=== PATIENT | female | born 1970 | race Caucasian/White ===

== ENCOUNTER → 2019-12-12 10:54 | Outpatient (BNVA) | payer OTHER, SELFPAY | PROVIDERS: Family Provider Nurse Practitioner Family; Visit Provider Nurse Practitioner Family | DX: R30.0 Dysuria (principal); Z90.710 Acquired absence of both cervix and uterus; R92.8 Other abnormal and inconclusive findings on diagnostic imaging of breast; N94.9 Unspecified condition associated with female genital organs and menstrual cycle; R10.2 Pelvic and perineal pain; B37.3 Candidiasis of vulva and vagina; Z12.4 Encounter for screening for malignant neoplasm of cervix | CPT/HCPCS: 81000; 84450; 87070; 88175 ==

== ENCOUNTER → 2020-05-07 08:35 | Outpatient (BNVA) | payer OTHER, SELFPAY | PROVIDERS: Family Provider Nurse Practitioner Family; Visit Provider Psychiatry & Neurology Neurology | DX: F33.2 Major depressive disorder, recurrent severe without psychotic features (principal); F41.1 Generalized anxiety disorder | CPT/HCPCS: 90791 ==

== ENCOUNTER → 2020-05-15 10:25 | Outpatient (BNVA) | payer OTHER, SELFPAY | PROVIDERS: Family Provider Nurse Practitioner Family; Visit Provider Anesthesiology Pain Medicine | DX: M25.552 Pain in left hip (principal) | CPT/HCPCS: 73502 ==

== ENCOUNTER → 2021-01-25 09:08 | Outpatient (BNVA) | payer OTHER, SELFPAY | PROVIDERS: Family Provider Nurse Practitioner Family; Visit Provider Nurse Practitioner | DX: Z13.6 Encounter for screening for cardiovascular disorders (principal) | CPT/HCPCS: 80053; 80061; 84443; 85025 ==

== ENCOUNTER → 2021-01-29 13:23 | Outpatient (BNVA) | payer OTHER, SELFPAY | PROVIDERS: Family Provider Nurse Practitioner Family; Visit Provider Nurse Practitioner Family | DX: Z20.822 Contact with and (suspected) exposure to COVID-19 (principal); J06.9 Acute upper respiratory infection, unspecified | CPT/HCPCS: 87635 ==